=== PATIENT | female | born 1980 | race Caucasian/White ===

== ENCOUNTER 2023-11-07 12:09 | Outpatient (CLI) | payer BC | END 2023-11-07 12:10 | disposition home or self-care (01) | LOC: CSHMAMMO 12:09 | PROVIDERS: ATTEND Obstetrics & Gynecology | DX: Z12.31 Encounter for screening mammogram for malignant neoplasm of breast (principal) | CPT/HCPCS: 77063; 77067 ==

== ENCOUNTER 2023-12-01 15:23 | Outpatient (CLI) | payer BC | END 2023-12-01 15:24 | disposition home or self-care (01) | LOC: CSHMRI 15:23 | PROVIDERS: ATTEND Internal Medicine Rheumatology | DX: M25.511 Pain in right shoulder (principal); M19.011 Primary osteoarthritis, right shoulder; M75.81 Other shoulder lesions, right shoulder ==

== ENCOUNTER 2025-02-04 10:55 | Outpatient (CLI) | payer OTHER | END 2025-02-04 10:56 | disposition home or self-care (01) | LOC: CSHMAMMO 10:55 | PROVIDERS: ATTEND Obstetrics & Gynecology | DX: Z12.31 Encounter for screening mammogram for malignant neoplasm of breast (principal) | CPT/HCPCS: 77063; 77067 ==